=== PATIENT | male | born 1980 ===

== ENCOUNTER 2023-01-31 08:12 | Emergency (ER) | payer MEDICAID, OTHER, SELFPAY ==
--- NOTE | ~2023-01-31 | CT_ITS ---
EXAMINATION: CT ABDOMEN AND PELVIS WITH CONTRAST CLINICAL INFORMATION: Right lower quadrant tenderness COMPARISON: None available. TECHNIQUE: Multidetector volumetric images were obtained from the superior aspect of the liver through the pubic symphysis following administration 85 mL of Omnipaque 350 intravenous contrast. Sagittal and coronal reformatted images were obtained on the technologist's workstation. Oral contrast: Yes This CT examination was performed using dose optimization techniques as appropriate, variously including the following: *Automated exposure control *Adjustment of mA and/or kV according to patient size (this includes techniques or standardized protocols for targeted exams where dose is matched to indication/reason for exam; i.e. extremities or head) *Use of iterative reconstruction technique DLP: 558 mGy-cm FINDINGS: Limited exam due to motion. LUNG BASES: The visualized lung bases are unremarkable. LIVER, GALLBLADDER, AND BILIARY TREE: The liver is normal in size, shape, and attenuation. No focal hepatic lesion or biliary ductal dilatation is present. The gallbladder is unremarkable with no evidence of radiopaque gallstones, gallbladder wall thickening, or obvious pericholecystic inflammatory changes. PANCREAS: Unremarkable. SPLEEN: Unremarkable. ADRENAL GLANDS: Unremarkable. KIDNEYS AND URETERS: The kidneys are normal in size, shape, and attenuation. No hydronephrosis, hydroureter, or calculi seen. No perinephric stranding. BLADDER: Unremarkable. GASTROINTESTINAL TRACT: The small and large bowel are unremarkable. The appendix is unremarkable. ABDOMINAL WALL: No significant hernia is appreciated. LYMPH NODES: Enlarged low-attenuation or cystic retroperitoneal lymph nodes. These are at the level of the kidneys. Largest lymph node measures 2.2 x 3.2 cm. VASCULAR: Unremarkable. PELVIC VISCERA: Unremarkable. OSSEOUS STRUCTURES: Unremarkable. CT/CT abdomen pelvis w IV con IMPRESSION: Limited exam due to motion. Normal-appearing appendix. Enlarged low-attenuation or cystic retroperitoneal lymph nodes at the level of the kidneys. Infectious, inflammatory and neoplastic process should be considered. Correlation with scrotal ultrasound to exclude testicular mass recommended. Fleischner guidelines were followed.
--- NOTE | ~2023-01-31 | US_ITS ---
EXAMINATION: US SCROTUM CLINICAL INFORMATION: Retroperitoneal lymphadenopathy. Rule out testicular mass.. COMPARISON: None available. TECHNIQUE: A sonogram of the scrotum was performed assessing colbert-scale appearance and color Doppler flow. Spectral Doppler analysis of the arterial and venous flow were performed in the testes bilaterally. FINDINGS: RIGHT: Right testicle measures 3.7 x 1.9 x 2.7 cm, volume 9.80 mL. No focal testicular parenchymal lesions are visualized. Spectral Doppler analysis of the arterial and venous flow is normal in the right testis. Right epididymal head is normal in size. There is an 8 x 9 mm epididymal head cyst. No right hydrocele or varicocele is seen. Right epididymal Doppler flow is normal. LEFT: Left testicle measures 3.9 x 1.6 x 2.5 cm, volume 7.7 mL. There is microlithiasis. No focal testicular parenchymal lesions are visualized. Spectral Doppler analysis of the arterial and venous flow is normal in the left testis. Left epididymal head is normal in size. No left hydrocele. Small left varicocele is seen. Left epididymal Doppler flow is normal. US/US scrotum IMPRESSION: No testicular mass seen by ultrasound. Left testicular microlithiasis. This has increased incidence of developing testicular cancer. Left varicocele. 8 x 9 mm right epididymal head cyst.
[2023-01-31 08:22] VITALS: BP 92/55; PULSE 56; RESP 16; TEMP 36.8; O2SAT 96; BMI 31.0
[2023-01-31 08:27] VITALS: BP 96/58; PULSE 53; RESP 17; TEMP 36.4; O2SAT 95
--- NOTE | 2023-01-31 08:51 | ED.ABDPAIN ---
HPI - Abdominal Pain General Chief Complaint: Abdominal Pain Stated Complaint: abd pain Time Seen by Provider: 01/31/23 08:38 Source: patient Mode of arrival: ambulatory Limitations: no limitations History of Present Illness HPI narrative: 42 year old male with no significant past medical history presents today with intermittent diffuse abdominal pain x24 hours. Patient reports intermittent aching abdominal pain, currently rated a 7-8/10, with subjective fevers and chills over night. No radiation of pain. Denies nausea, vomiting, diarrhea, constipation, dysuria, or hematuria. No previous abdominal surgeries. Denies tobacco or ilicit drug use. Denies eoth consumption. Related Data Previous Rx's Medication Instructions Recorded dicyclomine 20 mg tablet 20 mg PO QID PRN abdominal pain 01/31/23 #20 tabs Allergies Allergy/AdvReac Type Severity Reaction Status Date / Time No Known Allergies Allergy Verified 01/31/23 08:24 Review of Systems Review of Systems CONSTITUTIONAL: Denies weight loss, + fever + chills. GI: + abdominal pain, nausea, vomiting and diarrhea. : Denies dysuria and urinary frequency. MSK: Denies myalgia and joint pain. SKIN: Denies rash and pruritus. NEUROLOGICAL: Denies headache and syncope. Yes all other systems are reviewed and are negative PMFSH Past Medical History Attestation statement: The following information was validated with the patient. Source: old records reviewed and nursing notes reviewed Social History Social History Advance Directives: No Advance Directives Information Provided: Yes Physical Exam ED Vital Signs: Vital Signs - 24 hr 01/31/23 08:22 01/31/23 08:27 01/31/23 11:04 Temperature 98.2 F 97.5 F Pulse Rate 56 53 50 Respiratory Rate 16 17 17 Blood Pressure 92/55 L 96/58 L 94/58 L Pulse Oximetry 96 95 98 Oxygen Delivery Method Room Air Room Air Room Air BMI result Body Mass Index 31.0 GEN: Well developed, no acute distress, alert, oriented HEENT: Normocephalic, atraumatic, normal external ears, nose appears normal Eyes: Normal to appearance Neck: Supple Respiratory: Talks in complete sentences, no respiratory distress, clear to auscultation bilaterally Abdomen: Soft, tender to palpation in the RLQ with + McBurney's point tenderness, nondistended, no guarding, no rebound, negative ayoub's sign Extremities: No clubbing cyanosis or edema Skin: No rash Course Reevaluation(s) Reevaluation #1: Discussed ultrasound results with the patient and advised outpatient follow up with urology for further work up. Will send patient home with dicyclomine for abdominal pain. Patient expresses understanding and agreement with the plan. Time: 15:03 Medical Decision Making Medical Decision Making [facility] Narrative: 42 year old male with no significant medical history presenting with diffuse abdominal pain and subjective fevers/ chills x24 hours. Vital signs are stable. Physical exam significant for RLQ tenderness to palpation with + McBurney's point tenderness without guarding or rebound. Clinical suspicion for appendicitis Low suspicion for perforation or abscess, SBO Plan: labs, IVF, imaging, re-evaluate Results of lab and imaging studies were discussed with the patient. At this time I feel the patient is stable for discharge with outpatient follow up with urology. Will send dicyclomine rx home for the patient to take as needed for abdominal pain. Differential Diagnosis Differential Diagnoses: The differential diagnosis associated with the presentation includes appendicitis, cholecystitis, pancreatitis, SBO, ischemic colitis, IBD, testicular torsion Lab Data [facility] Lab Attestation statement: I reviewed the patient's lab results. No leukocytosis. 01/31/23 09:16 01/31/23 09:16 Labs: Lab Results 01/31/23 01/31/23 Range/Units 09:16 09:16 WBC 5.0 (4.8-10.8) X10*3/uL RBC 4.79 (4.60-5.80) X10*6/uL Hgb 14.0 (14.0-18.0) g/dl Hct 41.4 L (42.0-52.0) % MCV 86.4 (80.0-98.0) fL MCH 29.2 (27.0-33.0) pg MCHC 33.8 (31.0-36.0) g/dl RDW 12.9 (11.0-16.0) % Plt Count 183 (160-400) X10*3/uL MPV 9.9 (9.4-12.4) fL Immature Gran % (Auto) 0.2 (0.0-0.4) % Neut % (Auto) 65.6 (45-73) % Lymph % (Auto) 16.3 L (20-40) % Pettis % (Auto) 12.9 H (2-11) % Eos % (Auto) 4.8 H (0-4) % Baso % (Auto) 0.2 (0-2) % Lymph # (Auto) 0.8 L (1.2-4.9) X10*3/uL Pettis # (Auto) 0.7 (0.1-1.2) X10*3/uL Eos # (Auto) 0.2 (0.0-0.4) X10*3/uL Baso # (Auto) 0.0 (0.0-0.2) X10*3/uL Abs Immat Gran (auto) 0.01 (0.00-0.03) X10*3/uL Absolute Neuts (auto) 3.3 (2.0-8.3) x10*3/uL Absolute Nucleated RBC 0.000 (0.0-0.012) X10*3/uL Nucleated RBC % (auto) 0.0 (0.0-0.2) /100WBC Sodium 139 (135-145) mmol/L Potassium 3.6 (3.3-5.1) mmol/L Chloride 106 (96-108) mmol/L Carbon Dioxide 26 (22-29) mmol/L Anion Gap 11 L (12-20) BUN 15 (9-16) mg/dL Creatinine 0.73 (0.5-1.4) mg/dL Estim Creat Clear Calc 122.8 Estimated GFR > 60 Random Glucose 92 (60-115) mg/dL Calcium 8.3 L (8.4-10.2) mg/dL Total Bilirubin 1.8 H (0.0-1.0) mg/dL AST 22 (5-37) U/L ALT 19 (0-40) U/L Alkaline Phosphatase 99 (39-117) U/L Total Protein 6.2 L (6.5-8.0) g/dL Albumin 3.4 L (3.5-5.0) g/dL Lipase 11 (8-78) U/L Independent Interpretation I performed an independent interpretation of an: Ultrasound (Testicular: macrocalcifications noted to left testicle with epidydimal cyst. no mass) Radiology Impression Discussion of test interpretation with radiology: I have reviewed the radiologist's reading. Radiologist Impression: US scrotum IMPRESSION: No testicular mass seen by ultrasound. Left testicular microlithiasis. This has increased incidence of developing testicular cancer. Left varicocele. 8 x 9 mm right epididymal head cyst. Prescription Management I considered prescription management with: Pain Medication Medications Administered Discontinued Medications Generic Name Dose Route Start Last Admin Trade Name Freq PRN Reason Stop Dose Admin Sodium Chloride 1,000 mls @ 999 mls/hr 01/31/23 09:00 01/31/23 10:40 Ns IV 01/31/23 10:00 Infused .Q1H1M JULIAN Infusion Iohexol 85 ml 01/31/23 09:43 01/31/23 09:44 Iohexol 350 Mg/Ml 100 Ml Infus..Btl IV 01/31/23 09:44 85 ml ONCE ONE Administration Ketorolac Tromethamine 15 mg 01/31/23 08:52 01/31/23 09:20 Ketorolac Tromethamine 15 Mg/Ml Vial IVPUSH 01/31/23 08:53 15 mg ONCE ONE Administration Critical Care Time Critical Care Time Critical Care Time: No Discharge Plan Discharge Clinical Impression: Abdominal pain, acute, Testicular microlithiasis, Cyst of epididymis, Varicocele, Lymphadenopathy, retroperitoneal Patient Disposition: Home, Self-Care Instructions: Lymphadenopathy (ED), Varicocele (ED), Abdominal Pain (ED) Prescriptions: New dicyclomine 20 mg tablet 20 mg PO QID PRN (Reason: abdominal pain) Qty: 20 0RF Referrals: Kris Coffman MD [Physician] - 1 week Physician,Unknown J [Primary Care Provider] - (Primary Care Provider)
[2023-01-31] MEDS: 0.9 % Sodium Chloride 1,000 ML 999 ML IV (09:20)
[2023-01-31] MEDS: Ketorolac Tromethamine 15 MG/ML VIAL IVPUSH (09:20)
[2023-01-31 09:22] LABS: MANUAL DIFF FLAG NO
[2023-01-31 09:24] LABS: Basophils Percent Auto 0.2 % (0-2); Eosinophils Absolute Auto 0.2 X10*3/uL (0.0-0.4); Eosinophils Percent Auto 4.8 % (0-4); Hematocrit 41.4 % (42.0-52.0); Imm Gran Abs Auto 0.01 X10*3/uL (0.00-0.03); Imm Gran Pct Auto 0.2 % (0.0-0.4); Lymphocytes Absolute Auto 0.8 X10*3/uL (1.2-4.9); Lymphocytes Percent Auto 16.3 % (20-40); Mean Corpuscular HGB Conc 33.8 g/dl (31.0-36.0); Mean Corpuscular Hemoglobin 29.2 pg (27.0-33.0); Mean Corpuscular Volume 86.4 fL (80.0-98.0); Mean Platelet Volume 9.9 fL (9.4-12.4); Monocytes Absolute Auto 0.7 X10*3/uL (0.1-1.2); Monocytes Percent Auto 12.9 % (2-11); Neutrophils Absolute Auto 3.3 x10*3/uL (2.0-8.3); Neutrophils Percent Auto 65.6 % (45-73); Platelet Count 183 X10*3/uL (160-400); Red Blood Count 4.79 X10*6/uL (4.60-5.80); Red Cell Distribution Width 12.9 % (11.0-16.0)
[2023-01-31 09:38] LABS: Alanine Aminotransferase 19 U/L (0-40); Albumin Level 3.4 g/dL (3.5-5.0); Alkaline Phosphatase 99 U/L (39-117); Anion Gap 11 (12-20); Aspartate Amino Transferase 22 U/L (5-37); Bilirubin Total 1.8 mg/dL (0.0-1.0); Blood Urea Nitrogen 15 mg/dL (9-16); Calcium 8.3 mg/dL (8.4-10.2); Carbon Dioxide 26 mmol/L (22-29); Chloride 106 mmol/L (96-108); Creatinine Clr Calc Pharmacy 122.8; Estimated Glomerular Filt Rate > 60; Glucose Random 92 mg/dL (60-115); Lipase 11 U/L (8-78); Potassium 3.6 mmol/L (3.3-5.1); Sodium 139 mmol/L (135-145); Total Protein 6.2 g/dL (6.5-8.0)
[2023-01-31] MEDS: iohexoL 350 MG/ML 100 ML INFUS..BTL 85 ML IV (09:44)
[2023-01-31 11:04] VITALS: BP 94/58; PULSE 50; RESP 17; O2SAT 98
[2023-01-31 15:02] VITALS: BP 94/55; PULSE 49; RESP 18; O2SAT 96
== END 2023-01-31 15:06 | disposition home or self-care (01) ==
PROVIDERS: Emergency Provider Emergency Medicine
DX: N45.1 Epididymitis (principal); I86.1 Scrotal varices; R59.1 Generalized enlarged lymph nodes; R10.9 Unspecified abdominal pain; Z79.899 Other long term (current) drug therapy
CPT/HCPCS: 36415; 74177; 76870; 80053; 83690; 85025; 96361; 96374; 99284; 99285; J1885; Q9967

== ENCOUNTER 2023-07-05 10:04 | Outpatient (REF) | payer MEDICAID, OTHER, SELFPAY ==
[2023-07-05 12:16] LABS: Estimated Average Glucose 108 mg/dL; Hemoglobin A1c % 5.4 % (<6.0)
[2023-07-05 12:17] LABS: Hematocrit 43.7 % (42.0-52.0); Mean Corpuscular HGB Conc 34.3 g/dl (31.0-36.0); Mean Corpuscular Hemoglobin 29.1 pg (27.0-33.0); Mean Corpuscular Volume 84.9 fL (80.0-98.0); Mean Platelet Volume 10.2 fL (9.4-12.4); Platelet Count 218 X10*3/uL (160-400); Red Blood Count 5.15 X10*6/uL (4.60-5.80); Red Cell Distribution Width 12.7 % (11.0-16.0)
[2023-07-05 12:47] LABS: Alanine Aminotransferase 17 U/L (0-40); Albumin Level 3.8 g/dL (3.5-5.0); Alkaline Phosphatase 101 U/L (39-117); Anion Gap 10 (12-20); Aspartate Amino Transferase 23 U/L (5-37); Blood Urea Nitrogen 12 mg/dL (9-16); Calcium 8.7 mg/dL (8.4-10.2); Carbon Dioxide 24 mmol/L (22-29); Chloride 107 mmol/L (96-108); Cholesterol 131 mg/dL (<200); Estimated Glomerular Filt Rate > 60; Glucose Random 82 mg/dL (60-115); HDL Cholesterol 39 mg/dL (>40); LDL Cholesterol Calculated 82 mg/dL (<100); Sodium 137 mmol/L (135-145); Total Protein 6.8 g/dL (6.5-8.0); Triglycerides 51 mg/dL (<150)
[2023-07-05 12:50] LABS: TSH reflex Free T4 6.64 uIU/mL (0.32-4.0)
[2023-07-05 12:51] LABS: HBsAGNum1 0.61 S/CO (0.00-0.99); Hepatitis B Surface Antigen Negative (Negative)
[2023-07-05 12:52] LABS: HBS Num1 0.05 mIU/mL (0-7.99); HBc Num1 0.07 S/CO (0.00-0.79); HIV AB/AG Nonreactive (Nonreactive); HIV Num 1 0.05 S/CO (0.00-0.99); Hepatitis B Core Antibody Nonreactive (Nonreactive); ~HepC Num1 0.14 S/CO (0.00-0.79); ~Hepatitis B Surface Antibody NONREACTIVE (Nonreactive); ~Hepatitis C Antibody Nonreactive (Nonreactive)
[2023-07-05 12:53] LABS: Syphilis Screen Nonreactive (Nonreactive)
[2023-07-05 13:21] LABS: Free T4 (Free Thyroxine) 0.86 ng/dL (0.71-1.85)
== END 2023-07-05 10:05 | disposition home or self-care (01) ==
LOC: HO.HHCL 10:04
PROVIDERS: Visit Provider Student in an Organized Health Care Education/Training Program
DX: Z00.00 Encounter for general adult medical examination without abnormal findings (principal); Z11.4 Encounter for screening for human immunodeficiency virus [HIV]
CPT/HCPCS: 36415; 80053; 80061; 83036; 84439; 84443; 85027; 86704; 86706; 86780; 86803; 87340; 87389

== ENCOUNTER 2023-08-31 14:22 | Outpatient (REF) | payer MEDICAID, OTHER, SELFPAY ==
--- NOTE | ~2023-08-31 | XR_ITS ---
EXAMINATION: XR KNEE, LEFT CLINICAL INFORMATION: Left chronic knee pain. Patient states is worse when lifting heavy objects. COMPARISON: None available. TECHNIQUE: AP, AP axial and 3 lateral views of the left knee. FINDINGS: Moderate joint effusion. Small tricompartmental osteophytes most notable in the lateral compartment. Mild lateral joint space narrowing. XR/XR knee LT 3V IMPRESSION: 1. Moderate joint effusion. 2. Mild degenerative changes.
[2023-08-31 17:12] LABS: Free T4 (Free Thyroxine) 0.97 ng/dL (0.71-1.85); Thyroid Stimulating Hormone 4.23 uIU/mL (0.32-4.0)
[2023-09-01 12:08] LABS: H Pylori Breath Test Negative (Negative)
== END 2023-08-31 14:23 | disposition home or self-care (01) ==
LOC: HO.HHCL 14:22
PROVIDERS: Visit Provider Student in an Organized Health Care Education/Training Program
DX: M25.562 Pain in left knee (principal); G89.29 Other chronic pain; E03.8 Other specified hypothyroidism; R10.13 Epigastric pain
CPT/HCPCS: 36415; 73562; 83013; 84439; 84443